=== PATIENT | male | born 2000 ===

== ENCOUNTER 2023-07-21 11:41 | Inpatient (IN) ==
[2023-07-21] MEDS ORDERED: Al Hydrox/Mg Hydrox/Simet LIQ 30 ML UDC PO PRN (11:57)
[2023-07-22 08:52] LABS: HDL Cholesterol 69.8 mg/dL
== END 2023-07-28 16:54 | disposition home or self-care (01) | DRG 751 ==
LOC: BSU 13:13
PROVIDERS: ADMIT Psychiatry & Neurology Psychiatry; ATTEND Student in an Organized Health Care Education/Training Program